=== PATIENT | male | born 1965 | race Caucasian/White ===

== ENCOUNTER 2018-01-19 08:38 | Day surgery (SDC) | payer OTHER ==
[2018-01-19] MEDS ORDERED: PROPOFOL 20 ML ×4 (11:07→11:27)
== END 2018-01-19 15:18 | disposition home or self-care (01) ==
LOC: GIL 08:38
DX: Z12.11 Encounter for screening for malignant neoplasm of colon (principal); D12.5 Benign neoplasm of sigmoid colon; K64.8 Other hemorrhoids; J45.909 Unspecified asthma, uncomplicated; Z87.891 Personal history of nicotine dependence
CPT/HCPCS: 45380; 88305